=== PATIENT | male | born 1985 | race African-American/Black ===

== ENCOUNTER 2016-11-21 06:40 | Inpatient (IN) | payer SELFPAY ==
[~2016-11-21] VITALS: Ht 172.7 cm; Wt 108.4 kg
[2016-11-21] MEDS ORDERED: MORPHINE SULFATE 4 MG/ML CPJ (NOT FOR IM USE) IV STA (07:42)
[2016-11-21] MEDS ORDERED: ONDANSETRON HCL 4MG/2ML VIAL IV STA (07:42)
[2016-11-21] MEDS ORDERED: KETOROLAC 30MG/ML VIAL IV STA (07:42)
[2016-11-21] MEDS ORDERED: SODIUM CHLORIDE 0.9% 1000ML BAG (SEPSIS BOLUS) IV ONE (07:45)
[2016-11-21 08:50] LABS: CLARITY URINE CLEAR (CLEAR); COLOR URINE DARK YELLOW (YELLOW); GLUCOSE URINE NEGATIVE (NEGATIVE); KETONES URINE 1+ (NEGATIVE); LEUKOCYTE ESTERASE URINE NEGATIVE (NEGATIVE); NITRITE URINE NEGATIVE (NEGATIVE); OCCULT BLOOD URINE NEGATIVE (NEGATIVE); PH URINE 5.5 (4.5-8.0); PROTEIN URINE 2+ (NEGATIVE); SPECIFIC GRAVITY URINE 1.027 (1.005-1.030)
[2016-11-21 09:02] LABS: BASOPHILS % 0.5 % (0.0-2.0); HEMATOCRIT. 41.8 % (42.0-52.0); HEMOGLOBIN. 14.4 g/dL (14.0-18.0); LYMPHOCYTES % 13.9 % (20.0-50.0); MEAN CORPUSCULAR VOLUME 81.3 fL (80.0-94.0); MEAN PLATELET VOLUME 9.3 fl (7.4-10.4); MONOCYTES % 11.6 % (2.0-8.0); PLATELET 146 x1000/uL (130-400); RED BLOOD CELL COUNT 5.14 mill/uL (4.7-6.1); RED CELL DISTRIBUTION WIDTH 12.7 % (11.6-14.6)
[2016-11-21 09:13] LABS: INR 1.2; PROTHROMBIN TIME 12.3 sec
[2016-11-21 09:18] LABS: CARBON DIOXIDE 19 mEq/L (21-32); CHLORIDE 106 mEq/L (98-107)
[2016-11-21 09:21] LABS: TROPONIN I < 0.02 ng/mL (0.00-0.04)
[2016-11-21] MEDS ORDERED: METRONIDAZOLE 500 MG PREMIX 100 ML IV ONE (10:45)
[2016-11-21] MEDS ORDERED: LEVOFLOXACIN 750MG PREMIX 150 ML IV ONE (10:45)
[2016-11-21 12:00] VITALS: BP 110/71
[2016-11-21 12:10] VITALS: BP 110/71
[2016-11-21 16:00] VITALS: BP 112/80
[2016-11-21] MEDS ORDERED: CLONIDINE 0.1MG TABLET PO PRN (17:00)
[2016-11-21] MEDS: DEXT 5%/0.45% NACL 1000ML 1,000 ML IV SCH (17:16)
[2016-11-21] MEDS: ONDANSETRON HCL 4MG/2ML VIAL IV PRN (17:16)
[2016-11-21] MEDS: HYDROMORPHONE HCL/PF 2MG/ML CPJ IV PRN (17:18)
[2016-11-21] MEDS: ACETAMINOPHEN 325MG TABLET PO PRN (17:19)
[2016-11-21 20:00] VITALS: BP 112/71
[2016-11-21] MEDS ORDERED: KCL 20MEQ/100ML PREMIX 100 ML IV NR (21:00)
[2016-11-22] VITALS: BP 119/72
[2016-11-22] MEDS: ACETAMINOPHEN 325MG TABLET PO PRN ×4 (00:50→20:43)
[2016-11-22] MEDS: HYDROMORPHONE HCL/PF 2MG/ML CPJ IV PRN ×4 (00:50→20:42)
[2016-11-22 04:00] VITALS: BP 108/65
[2016-11-22 06:18] LABS: BASOPHILS % 0.4 % (0.0-2.0); HEMATOCRIT. 39.9 % (42.0-52.0); HEMOGLOBIN. 13.3 g/dL (14.0-18.0); LYMPHOCYTES % 26.1 % (20.0-50.0); MEAN CORPUSCULAR HEMOGLOBIN 28.1 pg (28.0-32.0); MEAN CORPUSCULAR VOLUME 83.9 fL (80.0-94.0); MEAN PLATELET VOLUME 9.8 fl (7.4-10.4); MONOCYTES % 12.5 % (2.0-8.0); PLATELET 130 x1000/uL (130-400); RED BLOOD CELL COUNT 4.76 mill/uL (4.7-6.1); RED CELL DISTRIBUTION WIDTH 12.5 % (11.6-14.6)
[2016-11-22 06:33] LABS: CHLORIDE 105 mEq/L (98-107)
[2016-11-22 06:40] LABS: CARBON DIOXIDE 25 mEq/L (21-32)
[2016-11-22 08:00] VITALS: BP 114/71
[2016-11-22] MEDS: DEXT 5%/0.45% NACL 1000ML 1,000 ML IV SCH (08:52)
[2016-11-22] MEDS ORDERED: POTASSIUM CHLORIDE 20MEQ TABLET SR PO NR (11:15)
[2016-11-22] MEDS: LEVOFLOXACIN 500MG PREMIX 100 ML IV SCH (11:35)
[2016-11-22 12:00] VITALS: BP 114/71
[2016-11-22] MEDS: METRONIDAZOLE 500 MG PREMIX 100 ML IV SCH ×2 (12:53→20:13)
[2016-11-22] MEDS: ONDANSETRON HCL 4MG/2ML VIAL IV PRN ×2 (13:25→20:42)
[2016-11-22 16:00] VITALS: BP 118/72
[2016-11-22 20:00] VITALS: BP 124/77
[2016-11-23] VITALS: BP 113/70
[2016-11-23] MEDS: HYDROMORPHONE HCL/PF 2MG/ML CPJ IV PRN ×5 (02:24→21:15)
[2016-11-23] MEDS: DEXT 5%/0.45% NACL 1000ML 1,000 ML IV SCH ×2 (02:25→10:17)
[2016-11-23 04:00] VITALS: BP 115/67
[2016-11-23] MEDS: METRONIDAZOLE 500 MG PREMIX 100 ML IV SCH ×3 (04:20→20:07)
[2016-11-23 06:46] LABS: BASOPHILS % 0.4 % (0.0-2.0); HEMATOCRIT. 37.6 % (42.0-52.0); HEMOGLOBIN. 12.7 g/dL (14.0-18.0); MEAN CORPUSCULAR HEMOGLOBIN 27.8 pg (28.0-32.0); MEAN CORPUSCULAR VOLUME 82.6 fL (80.0-94.0); MEAN PLATELET VOLUME 9.6 fl (7.4-10.4); MONOCYTES % 11.4 % (2.0-8.0); NEUTROPHILS % 56.2 % (40.0-76.0); PLATELET 120 x1000/uL (130-400); RED BLOOD CELL COUNT 4.55 mill/uL (4.7-6.1); RED CELL DISTRIBUTION WIDTH 12.6 % (11.6-14.6)
[2016-11-23 06:48] LABS: CARBON DIOXIDE 26 mEq/L (21-32); CHLORIDE 106 mEq/L (98-107)
[2016-11-23 08:00] VITALS: BP 103/78
[2016-11-23] MEDS: ONDANSETRON HCL 4MG/2ML VIAL IV PRN ×3 (08:40→21:15)
[2016-11-23] MEDS: ACETAMINOPHEN 325MG TABLET PO PRN ×2 (08:40→20:07)
[2016-11-23] MEDS: LEVOFLOXACIN 500MG PREMIX 100 ML IV SCH (11:12)
[2016-11-23 12:00] VITALS: BP 106/67
[2016-11-23 16:00] VITALS: BP 105/63
[2016-11-23 20:00] VITALS: BP 110/62
[2016-11-24] VITALS (7 sets, daily range): BP systolic 102–119; BP diastolic 63–85
[2016-11-24] MEDS: HYDROMORPHONE HCL/PF 2MG/ML CPJ IV PRN ×6 (03:13→23:52)
[2016-11-24] MEDS: ONDANSETRON HCL 4MG/2ML VIAL IV PRN ×4 (03:13→23:58)
[2016-11-24] MEDS: ACETAMINOPHEN 325MG TABLET PO PRN ×2 (03:13→12:13)
[2016-11-24] MEDS: DEXT 5%/0.45% NACL 1000ML 1,000 ML IV SCH ×3 (03:14→22:23)
[2016-11-24] MEDS: METRONIDAZOLE 500 MG PREMIX 100 ML IV SCH ×3 (04:25→20:38)
[2016-11-24] MEDS: LEVOFLOXACIN 500MG PREMIX 100 ML IV SCH (11:18)
[2016-11-25] MEDS: METRONIDAZOLE 500 MG PREMIX 100 ML IV SCH ×3 (03:07→19:36)
[2016-11-25 03:09] VITALS: BP 110/65
[2016-11-25] MEDS: HYDROMORPHONE HCL/PF 2MG/ML CPJ IV PRN ×7 (03:09→22:44)
[2016-11-25 05:54] LABS: HEMOGLOBIN. 12.4 g/dL (14.0-18.0); MEAN CORPUSCULAR HEMOGLOBIN 28.1 pg (28.0-32.0); MEAN PLATELET VOLUME 9.6 fl (7.4-10.4); PLATELET 129 x1000/uL (130-400); RED BLOOD CELL COUNT 4.41 mill/uL (4.7-6.1); RED CELL DISTRIBUTION WIDTH 12.6 % (11.6-14.6)
[2016-11-25 06:15] LABS: CHLORIDE 106 mEq/L (98-107)
[2016-11-25 06:21] LABS: CARBON DIOXIDE 24 mEq/L (21-32)
[2016-11-25] MEDS: ONDANSETRON HCL 4MG/2ML VIAL IV PRN ×3 (06:49→19:36)
[2016-11-25 08:00] VITALS: BP 107/60
[2016-11-25 10:28] LABS: ATYPICAL LYMPHOCYTES 3; PLATELET ESTIMATE DECREASED
[2016-11-25] MEDS: LEVOFLOXACIN 500MG PREMIX 100 ML IV SCH (10:59)
[2016-11-25 12:00] VITALS: BP 96/69
[2016-11-25] MEDS: DEXT 5%/0.45% NACL 1000ML 1,000 ML IV SCH (12:14)
[2016-11-25 16:00] VITALS: BP 104/65
[2016-11-25 20:00] VITALS: BP 104/62
[2016-11-26] VITALS: BP 98/66
[2016-11-26] MEDS: ONDANSETRON HCL 4MG/2ML VIAL IV PRN ×2 (01:48→08:14)
[2016-11-26] MEDS: HYDROMORPHONE HCL/PF 2MG/ML CPJ IV PRN ×3 (01:48→08:15)
[2016-11-26] MEDS: DEXT 5%/0.45% NACL 1000ML 1,000 ML IV SCH (01:49)
[2016-11-26 04:00] VITALS: BP 103/75
[2016-11-26] MEDS: METRONIDAZOLE 500 MG PREMIX 100 ML IV SCH ×2 (04:48→12:00)
[2016-11-26 08:00] VITALS: BP 108/60
[2016-11-26] MEDS: ACETAMINOPHEN 325MG TABLET PO PRN (08:14)
[2016-11-26] MEDS: LEVOFLOXACIN 500MG PREMIX 100 ML IV SCH (11:00)
[2016-11-26 11:48] VITALS: BP 108/60
== END 2016-11-26 12:20 | disposition home or self-care (01) | DRG 249 ==
LOC: ER 06:57 → 6EST 11:10 → EDBEDREQ 11:13 → EDBEDREQSVC 11:13 → EDBEDREQTM 11:13 → ENRESERV 11:25
PROVIDERS: ADMIT Hospitalist; ATTEND Hospitalist
DX: K52.9 Noninfective gastroenteritis and colitis, unspecified (principal); E86.0 Dehydration; R50.9 Fever, unspecified
CPT/HCPCS: 36415; 71010; 74176; 80053; 81001; 83605; 83735; 84484; 85025; 85610; 86703; 87040; 87086; 87493; 93005; 96374; 96375; 99285; J1170; J1885; J1956; J2270; J2405; J3480; J3490; J7030

== ENCOUNTER 2022-08-31 10:05 | Emergency (ER) | payer MEDICAID, OTHER ==
[~2022-08-31] VITALS: Ht 170.2 cm; Wt 90.0 kg
[2022-08-31 10:09] VITALS: BP 117/92
== END 2022-08-31 11:08 | disposition left against medical advice (07) ==
LOC: ER 10:37
DX: F10.129 Alcohol abuse with intoxication, unspecified (principal); Y90.9 Presence of alcohol in blood, level not specified
CPT/HCPCS: 99283

== ENCOUNTER 2022-08-31 11:51 | Emergency (ER) | payer MEDICAID, OTHER ==
[~2022-08-31] VITALS: Ht 177.8 cm; Wt 91.0 kg
[2022-08-31 12:14] VITALS: BP 154/86
== END 2022-08-31 18:10 | disposition home or self-care (01) ==
LOC: ER 11:51
DX: F10.10 Alcohol abuse, uncomplicated (principal); Y90.9 Presence of alcohol in blood, level not specified
CPT/HCPCS: 99283